=== PATIENT | female | born 1980 | race Caucasian/White ===

== ENCOUNTER 2025-03-14 14:32 | Emergency (ER) | payer MEDICAID ==
[2025-03-14] MEDS: Prochlorperazine 10 MG/2 ML SDV IV ONE (15:33)
[2025-03-14] MEDS: Ketorolac 15 MG/ML SDV IVPUSH ONE (15:36)
[2025-03-14] MEDS: Iopamidol 755 Mg/ML 100 ML Bottle IVPUSH ONE (16:16)
== END 2025-03-14 17:30 | disposition home or self-care (01) ==
LOC: VM.ED 14:32
DX: G43.909 Migraine, unspecified, not intractable, without status migrainosus (principal)
CPT/HCPCS: 70450; 70496; 96361; 96374; 96375; 99284; 99284-25; J0780; J1885; J7030; Q9967